=== PATIENT | male | born 1940 | race Caucasian/White ===

== ENCOUNTER → 2023-10-13 09:41 | Outpatient (REF) | payer OTHER, SELFPAY | LOC: HWRAD 09:41 | PROVIDERS: ATTENDING PHYSICIAN Internal Medicine Hematology & Oncology; FAMILY PHYSICIAN Internal Medicine; OTHER PHYSICIAN Internal Medicine Interventional Cardiology; REFERRING PHYSICIAN Internal Medicine | DX: D47.2 Monoclonal gammopathy (principal); S32.040A Wedge compression fracture of fourth lumbar vertebra, initial encounter for closed fracture; M85.80 Other specified disorders of bone density and structure, unspecified site | CPT/HCPCS: 77075 ==

== ENCOUNTER → 2023-10-27 10:26 | Outpatient (REF) | payer OTHER, SELFPAY | LOC: HWRAD 10:26 | PROVIDERS: ATTENDING PHYSICIAN Internal Medicine; FAMILY PHYSICIAN Internal Medicine; OTHER PHYSICIAN Internal Medicine Hematology & Oncology; REFERRING PHYSICIAN Internal Medicine Interventional Cardiology | DX: N17.9 Acute kidney failure, unspecified (principal) | CPT/HCPCS: 76770 ==

== ENCOUNTER → 2023-10-28 09:23 | Outpatient (REF) | payer OTHER, SELFPAY | LOC: HWRAD 09:23 | PROVIDERS: ATTENDING PHYSICIAN Internal Medicine Hematology & Oncology; FAMILY PHYSICIAN Internal Medicine; OTHER PHYSICIAN Internal Medicine Interventional Cardiology; REFERRING PHYSICIAN Internal Medicine | DX: D47.2 Monoclonal gammopathy (principal); S32.040A Wedge compression fracture of fourth lumbar vertebra, initial encounter for closed fracture; M85.80 Other specified disorders of bone density and structure, unspecified site | CPT/HCPCS: 77080 ==

== ENCOUNTER → 2024-01-14 10:52 | Outpatient (REF) | payer OTHER, SELFPAY | LOC: HWRCS 10:52 | PROVIDERS: ATTENDING PHYSICIAN Internal Medicine Interventional Cardiology; FAMILY PHYSICIAN Internal Medicine | DX: I48.0 Paroxysmal atrial fibrillation (principal); I35.0 Nonrheumatic aortic (valve) stenosis; I42.9 Cardiomyopathy, unspecified | CPT/HCPCS: 93306 ==

== ENCOUNTER 2024-09-16 18:31 | Inpatient (IN) | payer OTHER, SELFPAY ==
[2024-09-16 11:13] VITALS: BP 101/64
[2024-09-16 11:37] LABS: Urine Albumin 2+ (Neg - Trace); Urine Bilirubin Negative (Negative); Urine Character Clear (Clear); Urine Color Yellow; Urine Glucose Negative (Negative); Urine Ketone 1+ (Negative); Urine Leukocyte Negative (Negative); Urine Nitrite Negative (Negative); Urine Occult Blood 1+ (Negative); Urine Urobilinogen Negative (Neg - 1+)
[2024-09-16 11:40] LABS: % Basophils 0.3 % (0-2); % Immature Granulocytes 0.4 % (0-0.5); % Monocytes 6.9 % (1.7-9.3); % Neutrophils 89.4 % (42.2-75.2); Absolute Immature Granulocytes 0.1 10^3/uL (0-0.05); Absolute Lymphocytes 0.4 10^3/uL (1.2-3.4); Absolute Neutrophils 13.1 10^3/uL (1.4-6.5); Hematocrit 32.6 % (39.0-52.0); Hemoglobin 10.1 g/dL (13.0-18.0); Mean Corpuscular Hgb 33.3 pg (27.0-31.0); Mean Corpuscular Volume 107.6 fL (80.0-94.0); Mean Platelet Volume 9.7 fL (7.4-10.4); Nucleated Red Blood Cells % 0 % (-); Platelet Count 263 10^3/uL (130-400); Red Blood Cell Count 3.03 10^6/uL (4.70-6.10); Red Cell Dist. Width 13.9 % (11.5-14.5); White Blood Cell Count 14.7 10^3/uL (4.8-10.8)
[2024-09-16 11:44] LABS: Urine Bacteria Few (Negative); Urine Red Blood Cell 0-2 /HPF (0-2); Urine Squamous Cell 0-2 /LPF (Few); Urine White Cell 0-2 /HPF (0-5)
[2024-09-16 11:56] LABS: ALT (SGPT) 11 U/L (0-50); AST (SGOT) 19 U/L (17-59); Albumin 4.1 g/dl (3.5-5.0); Alkaline Phosphatase 59 U/L (38-126); Blood Urea Nitrogen 41 mg/dl (9-20); Calcium 9.6 mg/dl (8.4-10.2); Carbon Dioxide 22 mmol/L (22-30); Chloride 107 mmol/L (98-107); Glucose 168 mg/dl (70-99); Lipase 23 U/L (23-300); Potassium 4.4 mmol/L (3.5-5.1); Sodium 138 mmol/L (135-145); Total Bilirubin 0.8 mg/dl (0.2-1.3); Total Protein 6.9 g/dl (6.3-8.2); eGFR 26.44
[2024-09-16 12:21] VITALS: BP 143/85; BMI 26.4
--- NOTE | 2024-09-16 12:31 | ED.GENMED ---
History of Present Illness
General
Chief Complaint: Abdominal Pain
Source: patient
Exam Limitations: none
Time Seen by Provider: 09/16/24 12:12
Nursing documentation reviewed up to this point in time: agreed with
History of Present Illness
History of Present Illness:
Patient is an 83-year-old male with past medical history of A-fib on Eliquis hypertension hyperlipidemia renal insufficiency diabetes presents today for evaluation. Patient started lower abdominal pain last night and had 3 episode of semiformed wet
stools'.' Today he woke up and felt very tired fatigued and did vomit this morning. He is followed by nephrology Dr. Sweeney and last saw her in August 29. She started him on sodium bicarbonate. His renal function was going down.
No recent antibx and no sick contacts.
Past History
Past History
ED Past Medical History: Arrthythmia (Atrial fibrillation), CAD, GERD, NIDDM and Other (Episode of visual change representing possible TIA)
ED Past Surgical History: Cholecystectomy
Social History
Tobacco: Former smoker
Alcohol: Occasional
Drug: None
Personal:
Family History
Family History: Other (Reviewed and noncontributory)
Review of Systems
Review of Systems
Allergies reviewed?: Yes
Other source history: family
All Other Systems: ROS reviewed and negative except as documented in HPI and ROS
Constitutional: Reports fatigue; Denies fever
EENT: Reports no symptoms
Respiratory: Reports no symptoms
Cardiac: Reports no symptoms
ABD/GI: Reports abdominal pain, nausea, vomiting and diarrhea
: Reports no symptoms
Musculoskeletal: Reports no symptoms
Skin: Reports no symptoms
Neurological: Reports no symptoms
Psychiatric: Reports no symptoms
Phy Exam
General Physical Exam
General Presentation: no apparent distress
General age: appears stated age
General Skin: warm and dry
General Habitus: normal
General Mental: alert
General Hydration: dry mucous membranes
Cardiovascular Exam
Cardiovascular Exam: regular rate/rhythm, normal peripheral pulses and systolic murmur
Pulmonary Exam
Pulmonary Exam: lungs clear and no respiratory distress
Gastrointestinal Exam
Gastrointestinal Exam: other (mild lower abd tenderness )
Neurological Exam
Neurological Exam: alert and oriented x3
Musculoskeletal Exam
Musculoskeletal Exam: full ROM
Skin Exam
Skin Exam: normal color and warm/dry
Psychiatric Exam
Psychiatric Exam: normal mood/affect
Course
Orders/Labs/Results
Orders:
Orders
09/16/24 11:25
Complete Blood Count/With Diff Urgent
Comprehensive Metabolic Panel Urgent
Lipase Urgent
Urinalysis Reflex To Culture Urgent
Date Specimen was Collected: 09/16/24
Time Specimen was Collected: 11:16
Urine Microscopic Reflex Cult Urgent
09/16/24 12:41
CT Abd/pel (oral only)-DH Only Urgent
Comment:
Reason For Exam: abd pain vomiting
Iohexol [Omnipaque] See Protocol PO NOW STA
09/16/24 12:42
0.9% Sodium Chloride 1000 ml [Nss] 1,000 ml IV BOLUS
09/16/24 12:48
COVID-19 Antigen Urgent
Source: Nasal Swab
Influenza A+B Rapid Molecular Urgent
DEBORAH Source: Nasal Swab
Specimen Description:
09/16/24 15:54
C DIFF [C difficile Antigen & Toxins] Urgent
DEBORAH Source: Feces/Stool
Specimen Description:
Date Specimen was Collected: 09/16/24
Time Specimen was Collected: 15:51
Norovirus by PCR Urgent
DEBORAH Source: Feces/Stool
Specimen Description:
Date Specimen was Collected: 09/16/24
Time Specimen was Collected: 15:51
Stool Culture Urgent
DEBORAH Source: Feces/Stool
Specimen Description:
Date Specimen was Collected: 09/16/24
Time Specimen was Collected: 15:51
Abnormal Lab Results
09/16/24
11:25
WBC 14.7 H 10^3/uL
(4.8-10.8)
RBC 3.03 L 10^6/uL
(4.70-6.10)
Hgb 10.1 L g/dL
(13.0-18.0)
Hct 32.6 L %
(39.0-52.0)
MCV 107.6 H fL
(80.0-94.0)
MCH 33.3 H pg
(27.0-31.0)
MCHC 31.0 L g/dL
(33.0-37.0)
Abs Immat Gran (auto) 0.1 H 10^3/uL
(0-0.05)
Absolute Neuts (auto) 13.1 H 10^3/uL
(1.4-6.5)
Absolute Lymphs (auto) 0.4 L 10^3/uL
(1.2-3.4)
Absolute Monos (auto) 1.0 H 10^3/uL
(0.1-0.6)
Neutrophils % 89.4 H %
(42.2-75.2)
Lymphocytes % 3.0 L %
(20.5-51.1)
BUN 41 H mg/dl
(9-20)
Creatinine 2.4 H mg/dL
(0.7-1.3)
Glucose 168 H mg/dl
(70-99)
Urine Ketones 1+ A
(Negative)
Ur Occult Blood Reflex 1+ A
(Negative)
Urine Bacteria (Reflex) Few A
(Negative)
Urine Albumin (Reflex) 2+ A
(Neg - Trace)
09/16/24 11:25
09/16/24 11:25
Vital Signs
Initial and Last Documented VS:
Initial Vital Signs
Temp Pulse Resp BP Pulse Ox
98.5 F 76 18 101/64 99
09/16/24 11:13 09/16/24 11:13 09/16/24 11:13 09/16/24 11:13 09/16/24 11:13
Last Documented Vital Signs
Temp Pulse Resp BP Pulse Ox
98.5 F 72 18 143/85 93
09/16/24 11:13 09/16/24 12:21 09/16/24 12:21 09/16/24 12:21 09/16/24 12:21
MDM/Problems Addressed
Differential Diagnosis Includes:
Not limited to viral syndrome dehydration electrolyte abnormality, less likely C. difficile
MDM/Problems Addressed:
As documented patient is an 83-year-old male with renal insufficiency diabetes hypertension hyperlipidemia started with diarrhea last night complaining of weakness. He has vomited this morning. While patient has been here he has had several
episodes of diarrhea cultures were sent. Patient denies any fevers is afebrile white count however elevated at 14.7 hemoglobin stable at 10.1. Renal function however has doubled his creatinine is down to 0.4 it was 1.4(last in 2022).
Patient received fluids here but does complain of continued weakness. Patient will need admission for hydration further evaluation for renal insufficiency stool cultures pending
Chronic conditions affecting care:
renal insufficiency
*Pulse Oximetry
Patient hypoxic: no
*Critical Care Note
Total Time (30-74mins, 75-104mins- exclusive of procedures): Not Applicable
ED Attending Note
-
Portions of this chart may have been created with voice recognition software.� Occasional wrong word or��sound alike� substitutions may have occurred due to the inherent limitations of voice recognition software.
Discharge Plan
Departure
Patient Disposition: Admit
Date of Disposition: 09/16/24
Time of Disposition: 16:56
Admit to: Med/Surg
Admit to doctor: hospitalist
Presentation/result/management discussed w/ accepting MD/DO: Hospitalist
Patient with high blood pressure during this ER visit?: Yes
Condition: Fair
Covid-19: Not Applicable
Discharge Problem:
Acute dehydration, Acute kidney insufficiency, Nausea, vomiting and diarrhea
Prescriptions:
No Action
metformin 500 MG tablet
1,000 mg PO BID
omeprazole 20 MG capsule,delayed release(DR/EC)
20 mg PO DAILY
terazosin 1 mg Capsule
1 mg PO QPM
magnesium oxide 400 mg magnesium Capsule
400 mg PO BID
cyanocobalamin (vitamin B-12) [Vitamin B-12] 1,000 mcg Tablet
1,000 mcg PO DAILY
zinc 50 mg Capsule
50 mg PO DAILY
atorvastatin 40 mg Tablet
40 mg PO DAILY
calcium carbonate-vitamin D3 500 mg-3.125 mcg (125 unit) Tablet
2 tab PO BID
amiodarone [Pacerone] 200 mg Tablet
200 mg PO BID Qty: 0 0RF
amlodipine 2.5 mg Tablet
2.5 mg PO DAILY Qty: 0 0RF
Eliquis 5 mg tablet
5 mg PO BID Qty: 60 0RF
acetaminophen 500 mg Tablet
500 mg PO BID PRN (Reason: mild pain)
oxycodone-acetaminophen 5-325 mg tablet
1 tab PO Q8H PRN (Reason: moderate pain)
Patient Comments:
07/12/2023: last filled 07/09/23, 90 tabs for 30 days
Referrals:
Jose Morrell MD [Family Provider] -
Interventions
Interventions:
*Risk Screen - Suicide Last Done: 09/16/24 11:13
*General Assessment Last Done: 09/16/24 11:13
*Neglect/Abuse Screening Last Done: 09/16/24 11:13
*ED COVID-19 Vaccine History Last Done: 09/16/24 11:13
MQ-Isvinh-Cswsybzsbb Assessment Last Done: 09/16/24 12:21
Discharge Date and Time
Print Language: KAZAKH
[2024-09-16] MEDS: OMNIPAQUE 50 ML PO (12:47)
[2024-09-16] MEDS: NSS 1000 IV ×2 (12:47→21:45)
[2024-09-16 13:27] LABS: COVID-19 Antigen Negative (Negative)
--- NOTE | 2024-09-16 17:24 | HPS.HSE ---
Family Physician
-
Family Physician: Jose Morrell
Chief Complaint
-
lower abdominal pain with n/v/d
History of Present Illness
83-year-old male with past medical history of A-fib on Eliquis hypertension hyperlipidemia renal insufficiency diabetes presents today for intermittent abdominal pain since last night. Patient stated loose stool associated with formed stool for
past. Today he had diarrhea as vomiting. He is complaining of lower abdominal cramps which is intermittent. Denied any blood in the stool or vomit. Patient denied any fever, chills, chest pain, short of breath. Patient denies any headache,
dizzy or syncope. Patient denied dysuria hematuria. Today morning patient was very fatigued and weak.
CT with gastritis. Patient received normal saline in the ER. Stool for C. difficile, norovirus and stool culture sent from ER. Admitting for further management
Medical History
Past Medical History
Past Medical History: Reports Other
Additional Past Medical History:
Hypertension
Type 2 diabetes
GERD
Hyperlipidemia
CKD
Compression fracture of back
Chronic back pain
Past Surgical History: Reports Other
Additional Past Surgical History:
Trigger finger fourth digit repaired
Tonsillectomy
Big toe surgery
Inguinal hernia repair
Right foot great toe repair
Social History
Tobacco: Former Smoker
Alcohol: None
Drug: None
Personal:
Living: With Family
Family History
Family History: Not pertinent
Allergies / Home Medications
Allergies reflects when Allergies were last updated in [employer].
Home Medications with original date entered in [employer]
Allergy/Medication List:
Allergies
Allergy/AdvReac Type Severity Reaction Status Date / Time
No Known Allergies Allergy Verified 09/16/24 11:15
Home Medications
atorvastatin 40 mg tablet 40 mg PO QPM High Cholesterol 06/16/23
calcium 500 mg (as carbonate)-vitamin D3 3.125 mcg (125 unit) tablet 2 tab PO BID Supplement 06/16/23
terazosin 1 mg capsule 1 mg PO QPM Blood Pressure 06/16/23
amiodarone 200 mg tablet (Pacerone) 200 mg PO NOON 09/16/24
apixaban 2.5 mg tablet (Eliquis) 2.5 mg PO BID 09/16/24
furosemide 20 mg tablet 20 mg PO DAILYPRN PRN swelling 09/16/24
magnesium chloride 71.5 mg (magnesium chloride) tablet,delayed release (Slow-Mag) 71.5 mg PO TID 09/16/24
sodium bicarbonate 650 mg tablet 650 mg PO BID 09/16/24
sodium polystyrene sulfonate 15 gram-sorbitol 20 gram/60 mL oral susp (SPS (with sorbitol)) 60 ml PO MOWEFR 09/16/24
Review of Systems
-
Constitutional: Reports Fatigue
EENT: Reports No Symptoms
Respiratory: Reports No Symptoms
Cardiac: Reports No Symptoms
Abdomen/GI: Reports Abdominal Pain, Nausea, Vomiting and Diarrhea
: Reports No Symptoms
Musculoskeletal: Reports No Symptoms
Skin: Reports No Symptoms
Neurological: Reports Weakness
Endocrine: Reports No Symptoms
Hematologic/Lymphatic: Reports No Symptoms
Psych: Reports No Symptoms
Physical Exam
Vital Signs
Vital Signs
Temp Pulse Resp BP Pulse Ox
98.5 F 72 18 143/85 93
09/16/24 11:13 09/16/24 12:21 09/16/24 12:21 09/16/24 12:21 09/16/24 12:21
Physical Exam
General: Well Developed, Well Nourished and No Apparent Distress
HEENT: NormoCephalic, Moist mucous membranes and Atraumatic
Respiratory: Clear
Cardiac: S1/S2 and Regular Rhythm; No Murmur or Rub
GI: Soft, Non Tender, Non Distended and Normal Bowel Sounds; No Organomegaly
Rectal: Deferred by Provider
Musculoskeletal: No Clubbing, No Cyanosis and No Edema
Skin: No Rash
Neuro: AO x 3 and Nonfocal/grossly intact
Psych: Calm
Laboratory Results
-
09/16/24 11:25
09/16/24:
Laboratory Results
Total Bilirubin 0.8 mg/dl (0.2-1.3) 09/16/24:
AST 19 U/L (17-59) 09/16/24:
ALT 11 U/L (0-50) 09/16/24:
Alkaline Phosphatase 59 U/L (38-126) 09/16/24
Lipase 23 U/L (23-300) 09/16/24:
Data Reviewed
-
CT Scan: Report Reviewed by me
Lab Data: Labs Reviewed by me
Impression/Plan
-
# Nausea vomiting/diarrhea likely gastroenteritis
-WBCs 14.7
-Flu, COVID-negative
-Stool culture sent from ER
-Stool for C. difficile, norovirus
-CT abdomen pelvis with impression of Gastric wall thickening suggesting possible gastritis. Mild bilateral renal cortical thinning with 2 cm right renal cyst). Diverticuli are present in the colon with no CT evidence of diverticulitis.. Small right
pleural effusion. Multilevel degenerative disc disease with old 90% compression fracture of L4
#generalized weakness likely from nausea vomiting
-PT/OT consulted
# Acute renal failure on CKD stage IIIb likely from nausea vomiting/diarrhea
-Creatinine 2.4
-Fluids continued
BMP in a.m.
# Anemia of chronic disease
-Hemoglobin stable at 10.1
-No active bleed
-Continue to monitor
#PAF--Cont Eliquis/Amio
-EKG with normal sinus
#Hyperlipidemia
-Statin continued
Essential hypertension-- Continue terazosin
code status --DNR
[2024-09-16 17:43] VITALS: BP 125/50
--- NOTE | 2024-09-16 18:01 | W.PN.UPDATE ---
Update Note
Progress Note Update
This is an addendum to the H&P written by Elva Walsh on 09/16/2024.� Patient seen and examined independently with IRISH MOSS GATHERER.
83-year-old male past medical history of CKD 3A, type 2 diabetes, paroxysmal atrial fibrillation on Eliquis, hypertension, presenting for diarrhea for the past 2 days as well as vomiting associate with lower abdominal cramping.
Labs show LEANN with creatinine of 2.4 from 1.4.� Leukocytosis of 14.7.
CT abdomen pelvis shows gastric wall thickening suggesting possible gastritis.
Presentation consistent with acute viral gastroenteritis with associated LEANN on CKD 3A.� Clear liquid diet.� Stool studies, norovirus, C. difficile pending. IV fluids.�
--- NOTE | 2024-09-16 21:06 | PTCARENOTE ---
Pt received from ED to [id number]. Pt oriented to room and call warren.
[2024-09-16 21:31] VITALS: BP 102/73; BMI 26.9
[2024-09-16] MEDS: LIPITOR 40 MG PO (21:47)
[2024-09-16] MEDS: ELIQUIS 2.5 MG PO (21:47)
[2024-09-16] MEDS: SODIUM BICARBONATE 650 MG PO (21:47)
[2024-09-16 23:49] VITALS: BP 148/96
[2024-09-17 03:28] VITALS: BP 125/54
[2024-09-17 07:00] VITALS: BP 127/55
[2024-09-17 07:57] LABS: Hematocrit 26.7 % (39.0-52.0); Hemoglobin 8.5 g/dL (13.0-18.0); Mean Corp Hgb Conc. 31.8 g/dL (33.0-37.0); Mean Corpuscular Hgb 33.9 pg (27.0-31.0); Mean Corpuscular Volume 106.4 fL (80.0-94.0); Platelet Count 220 10^3/uL (130-400); Red Blood Cell Count 2.51 10^6/uL (4.70-6.10); White Blood Cell Count 9.2 10^3/uL (4.8-10.8)
[2024-09-17] MEDS: NSS 1000 IV (08:09)
[2024-09-17] MEDS: SODIUM BICARBONATE 650 MG PO (08:10)
[2024-09-17] MEDS: ELIQUIS 2.5 MG PO (08:10)
[2024-09-17 08:30] LABS: Blood Urea Nitrogen 36 mg/dl (9-20); Calcium 8.4 mg/dl (8.4-10.2); Carbon Dioxide 19 mmol/L (22-30); Chloride 108 mmol/L (98-107); Estimated Creatinine Clearance 28 ml/min; Glucose 108 mg/dl (70-99); Sodium 137 mmol/L (135-145); eGFR 29.36
--- NOTE | 2024-09-17 08:41 | CON.GI ---
Consultation
-
Date/Time Consultation Requested: 09/17/24
Date/Time Consultation Performed: 09/17/24
Requesting Provider:
Performing Provider:
Reason for Consultation: n/v/d
Medical History
Chief Complaint / HPI
Chief Complaint: n/v/d
History of Present Illness:
This is a very pleasant 83-year-old male with past medical history of hypertension, Type 2 diabetes, GERD, Hyperlipidemia, CKD, Compression fracture of back, Chronic back pain, Atrial fibrillation on Eliquis, CAD, Episode of visual change
representing possible TIA who was in his usual state of health up until about 2 days ago when he started to develop lower abdominal pain with frequent looser stools. Yesterday morning he had an episode of vomiting which prompted him to come into
the emergency room he has not had any further episodes of vomiting and he did have about 3 loose bowel movements yesterday stool was negative for C. difficile and negative for norovirus, cultures are pending. He denies any fevers or chills no
rectal bleeding. He denies any recent travel or exposure to sick contacts. They had lost power so him and his were staying with his [id number] for 2 days and had not really eaten out prior to the onset of the symptoms but yesterday he
had eaten takeout but had symptoms prior to that. He does have a history of reflux esophagitis and had been on omeprazole for a few years but subsequently was diagnosed with CKD and was taken off PPI and has made dietary modifications and has
actually been doing well with reflux with occasional use of Tums. His last colonoscopy was in 2014 and also his last endoscopy was in 2015 as below. He did have dehydration with elevated creatinine on admission and is being hydrated. His symptoms
have markedly improved today he has not had any further vomiting or diarrhea today.
Past Medical History
Past Medical History: Other (Fever ypertension, Type 2 diabetes, GERD, Hyperlipidemia, CKD, Compression fracture of back, Chronic back pain, Atrial fibrillation on Eliquis, CAD, Episode of visual change representing possible TIA)
Past Surgical History: Other (Trigger finger fourth digit repaired, Tonsillectomy, CCY, Inguinal hernia repair, Right foot great toe repair)
Social History
Tobacco: Former Smoker
Alcohol: None
Drug: None
Personal:
Living: With Family
Family History
Family History: Reviewed & Not Pertinent
Allergies / Home Medications
Allergy/AdvReac Type Severity Reaction Status Date / Time
No Known Allergies Allergy Verified 09/16/24 11:15
�Medication �Instructions �Recorded
atorvastatin 40 mg tablet 40 mg PO QPM High Cholesterol 06/16/23
calcium 500 mg (as 2 tab PO BID Supplement 06/16/23
carbonate)-vitamin D3 3.125 mcg
(125 unit) tablet
terazosin 1 mg capsule 1 mg PO QPM Blood Pressure 06/16/23
amiodarone 200 mg tablet (Pacerone) 200 mg PO NOON Heart 09/16/24
Disease/Condition
apixaban 2.5 mg tablet (Eliquis) 2.5 mg PO BID Blood Clot 09/16/24
Prevention/Tx
furosemide 20 mg tablet 20 mg PO DAILYPRN PRN swelling 09/16/24
magnesium chloride 71.5 mg 71.5 mg PO TID Supplement 09/16/24
(magnesium chloride)
tablet,delayed release (Slow-Mag)
sodium bicarbonate 650 mg tablet 650 mg PO BID Metabolic acidosis 09/16/24
sodium polystyrene sulfonate 15 60 ml PO MOWEFR Potassium Binder 09/16/24
gram-sorbitol 20 gram/60 mL oral
susp (SPS (with sorbitol))
Review of Systems
-
All other systems: A 12 pt ROS was Negative except as stated above in HPI
Vital Signs
Temp Pulse Resp BP Pulse Ox
98.3 F 65 18 127/55 92
09/17/24 07:00 09/17/24 07:00 09/17/24 07:00 09/17/24 07:00 09/17/24 07:00
Physical Exam
Exam
General: No Apparent Distress
HEENT: Normocephalic
Respiratory: Clear
Cardiac: S1/S2
GI: Non Tender, Non Distended and Normal Bowel Sounds
Musculoskeletal: No Clubbing
Neuro: Awake, Alert and Oriented
Psych: Calm
Results
WBC 9.2 10^3/uL (4.8-10.8) 09/17/24 07:06
Hgb 8.5 g/dL (13.0-18.0) L 09/17/24 07:06
Hct 26.7 % (39.0-52.0) L 09/17/24 07:06
MCV 106.4 fL (80.0-94.0) H 09/17/24 07:06
Plt Count 220 10^3/uL (130-400) 09/17/24 07:06
Absolute Neuts (auto) 13.1 10^3/uL (1.4-6.5) H 09/16/24 11:25
Sodium 137 mmol/L (135-145) 09/17/24 07:06
Potassium 4.0 mmol/L (3.5-5.1) 09/17/24 07:06
Chloride 108 mmol/L (98-107) H 09/17/24 07:06
Carbon Dioxide 19 mmol/L (22-30) L 09/17/24 07:06
BUN 36 mg/dl (9-20) H 09/17/24 07:06
Creatinine 2.2 mg/dL (0.7-1.3) H 09/17/24 07:06
Calcium 8.4 mg/dl (8.4-10.2) 09/17/24 07:06
Total Bilirubin 0.8 mg/dl (0.2-1.3) 09/16/24 11:25
AST 19 U/L (17-59) 09/16/24 11:25
ALT 11 U/L (0-50) 09/16/24 11:25
Alkaline Phosphatase 59 U/L (38-126) 09/16/24 11:25
Lipase 23 U/L (23-300) 09/16/24 11:25
Diagnostic Image Results:
09/16/24 CT Abd/pelvis
IMPRESSION:
1). Gastric wall thickening suggesting possible gastritis
2). Mild bilateral renal cortical thinning with 2 cm right renal cyst
3). Diverticuli are present in the colon with no CT evidence of diverticulitis.
4). Small right pleural effusion.
5). Multilevel degenerative disc disease with old 90% compression fracture of L4
Prior GI Procedures:
09/16/24 Stool
C. difficile [facility] Antigen & Toxins - Final
���Negative for toxigenic C.difficile
- Final
���Negative for Norovirus GI and GII.
EGD: 03/03/2015 - SONYA Grade B reflux esophagitis. Biopsied negative for Valle's negative for EOE.
- Enlarged gastric folds. Biopsied benign
- Chronic gastritis. Biopsied negative for dysplasia negative for H. pylori..
- Normal 3rd part of the duodenum. Biopsied negative for celiac.
Colonoscopy: 03/03/2015 -Impression: - One 3 mm polyp in the descending colon. Resected and
retrieved - adenomatous polyp.
- Diverticulosis in the sigmoid colon.
- The examination was otherwise normal.
Assessment / Plan
-
1. Acute onset of symptoms of lower abdominal pain with nausea vomiting and diarrhea most likely related to possible viral gastroenteritis vs less likely food poisoning. Stool negative for C. difficile and negative for norovirus will follow-up on
the cultures. His symptoms have markedly improved so will start him on low residue diet and if he tolerates okay to DC home from GI perspective.
2. LEANN with history of prior CKD follows up with nephrology as outpatient trend creatinine and being hydrated with fluids now most likely was related to the diarrhea and vomiting.
3. History of reflux esophagitis in 2014 on EGD has been off omeprazole for few years now and has been doing well with dietary modifications and uses Tums as needed.
4. History of adenomatous colon polyp in 2015 given age will hold off on further surveillance
5. Diverticulosis resume high-fiber diet after these acute symptoms have resolved
Data Reviewed
-
CT Scan: Report Reviewed by me
Old Records: Reviewed
-
-
Thank you for consultation and allowing me to participate in the patient's care. Please call the operational intelligence analyst GI physician during the after hours with any questions or concerns.
--- NOTE | 2024-09-17 09:04 | W.PN.HOSP.TC ---
Today's Communication/Plan
-
Continue with low rate IVF for renal
Repeat blood work, drop in HGB
Order PT/OT
Assessment / Plan
Assessment / Plan
Physical Exam
General: Well Developed, Well Nourished and No Apparent Distress
HEENT: Normocephalic, Moist mucous membranes and Atraumatic
Respiratory: Clear
Cardiac: S1/S2, + Murmur. Regular.
GI: Soft, Non Tender, Non Distended and Normal Bowel Sounds;
Rectal: No bleeding
Musculoskeletal: No Clubbing, No Cyanosis and No Edema
Skin: No Rash
Neuro: AO x 3 and Nonfocal/grossly intact
Psych: Calm
# Nausea vomiting/diarrhea likely gastroenteritis, WBCs 14.7
Significant improvement
No pain, no nausea, pt wants to eat solid food
WBC normal, no fevers
Negative Lipase.
No diarrhea
-Flu, COVID-negative
-Stool culture sent from ER
-Negative C. difficile, norovirus
-CT abdomen pelvis with impression of Gastric wall thickening suggesting possible gastritis. Mild bilateral renal cortical thinning with 2 cm right renal cyst). Diverticuli are present in the colon with no CT evidence of diverticulitis.. Small right
pleural effusion. Multilevel degenerative disc disease with old 90% compression fracture of L4
#generalized weakness likely from nausea vomiting
-PT/OT consulted
# Acute renal failure on CKD stage IIIb likely from nausea vomiting/diarrhea
-Creatinine 2.4, now down to 2.2
- s/p IVF, will c/w low rate
# Anemia of chronic disease
-Hemoglobin stable at 10.1, dropped to 8, suspect dilutional
Repeat CBC in AM
No bleeding
-No active bleed
#Paroxysmal a fib
- Cont Eliquis/Amiodarone
-EKG with normal sinus
#Hyperlipidemia
-Statin continued
Essential hypertension-- Continue terazosin
code status --DNR
Total time spent to see the patient on the floor, examine the patient, review data and lab results, discuss treatment plan with patient, nursing staff around 55 minutes
Anticipated Discharge: Within 24 hours
Subjective/Interval History
-
Date of Service: September 17, 2024
Feels better
No nausea
would like to eat more food
Objective Data
-
Labs:
Laboratory Results
09/17/24
07:06
WBC 9.2
Hgb 8.5 L
Hct 26.7 L
Plt Count 220
Sodium 137
Potassium 4.0
Chloride 108 H
Carbon Dioxide 19 L
BUN 36 H
Creatinine 2.2 H
Glucose 108 H
Calcium 8.4
Vital Signs:
Vital Signs
Temp Pulse Resp BP Pulse Ox
98.3 F 65 18 127/55 92
09/17/24 07:00 09/17/24 07:00 09/17/24 07:00 09/17/24 07:00 09/17/24 07:00
I&O
09/16/24 09/17/24 09/18/24
06:59 06:59 06:59
Intake Total 1060 / 1060
Output Total 200 / 200
Balance 860 / 860
[2024-09-17 10:40] VITALS: BP 112/93; O2SAT 95
[2024-09-17 11:00] VITALS: BP 113/47
[2024-09-17] MEDS: PACERONE 200 MG PO (11:29)
--- NOTE | 2024-09-17 11:38 | W.CON.NEPH ---
Consultation
-
Date/Time Consultation Requested: September 17, 2024 at 7 AM
Date/Time Consultation Performed: September 17, 2024 at 11:30 AM
Requesting Provider: Dr. Cooper
Performing Provider: Dr. Bhagat
Reason for Consultation: Chronic kidney disease
Medical History
-
Chief Complaint: Abdominal pain
History of Present Illness:
83-year-old male with past medical history of A-fib on Eliquis hypertension hyperlipidemia renal insufficiency diabetes presents today for intermittent abdominal pain since last night.. This was associated with loose stools and vomiting x 1.
Renal consult for CKD management.
Patient follows with Dr. Sweeney for his chronic kidney disease which has been progressing over the last year. His most recent creatinine as of August 25, 2024 was 2.6. At that office visit he was put on sodium bicarbonate tablets.
His renal function on hospital admission was better than his baseline. Over the last 12 months his creatinine has been running from 2.3-2.6.
Of note his omeprazole had been discontinued about a year ago because of his chronic kidney disease. He did have a positive ANICETO and was offered a kidney biopsy with his progressive increase in renal function although the patient declined.
Past Medical History
Chronic kidney disease stage IV, hypertension, atrial fibrillation, acidosis diabetes
Social History
Tobacco: Non-Smoker
Alcohol: None
Family History
No renal disease
Allergies / Home Medications
Allergy/AdvReac Type Severity Reaction Status Date / Time
No Known Allergies Allergy Verified 09/16/24 11:15
�Medication �Instructions �Recorded �Confirmed �Type
atorvastatin 40 mg tablet 40 mg PO QPM High Cholesterol 06/16/23 09/16/24 History
calcium 500 mg (as 2 tab PO BID Supplement 06/16/23 09/16/24 History
carbonate)-vitamin D3 3.125 mcg
(125 unit) tablet
terazosin 1 mg capsule 1 mg PO QPM Blood Pressure 06/16/23 09/16/24 History
amiodarone 200 mg tablet (Pacerone) 200 mg PO NOON Heart 09/16/24 09/16/24 History
Disease/Condition
apixaban 2.5 mg tablet (Eliquis) 2.5 mg PO BID Blood Clot 09/16/24 09/16/24 History
Prevention/Tx
furosemide 20 mg tablet 20 mg PO DAILYPRN PRN swelling 09/16/24 09/16/24 History
magnesium chloride 71.5 mg 71.5 mg PO TID Supplement 09/16/24 09/16/24 History
(magnesium chloride)
tablet,delayed release (Slow-Mag)
sodium bicarbonate 650 mg tablet 650 mg PO BID Metabolic acidosis 09/16/24 09/16/24 History
sodium polystyrene sulfonate 15 60 ml PO MOWEFR Potassium Binder 09/16/24 09/16/24 History
gram-sorbitol 20 gram/60 mL oral
susp (SPS (with sorbitol))
Review of Systems
-
Currently no chest pain shortness of breath nausea or vomiting or abdominal pain
All other systems: Negative unless noted
Physical Exam
Vital Signs
Vital Signs
Temp Pulse Resp BP Pulse Ox
98.3 F 65 18 127/55 92
09/17/24 07:00 09/17/24 07:00 09/17/24 07:00 09/17/24 07:00 09/17/24 07:00
Lab Results
WBC 9.2 10^3/uL (4.8-10.8) 09/17/24 07:06
RBC 2.51 10^6/uL (4.70-6.10) L 09/17/24 07:06
Hgb 8.5 g/dL (13.0-18.0) L 09/17/24 07:06
Hct 26.7 % (39.0-52.0) L 09/17/24 07:06
Plt Count 220 10^3/uL (130-400) 09/17/24 07:06
Sodium 137 mmol/L (135-145) 09/17/24 07:06
Potassium 4.0 mmol/L (3.5-5.1) 09/17/24 07:06
Chloride 108 mmol/L (98-107) H 09/17/24 07:06
Carbon Dioxide 19 mmol/L (22-30) L 09/17/24 07:06
BUN 36 mg/dl (9-20) H 09/17/24 07:06
Creatinine 2.2 mg/dL (0.7-1.3) H 09/17/24 07:06
eGFR 29.36 09/17/24 07:06
Glucose 108 mg/dl (70-99) H 09/17/24 07:06
Calcium 8.4 mg/dl (8.4-10.2) 09/17/24 07:06
Albumin 4.1 g/dl (3.5-5.0) 09/16/24 11:25
Physical Exam
General no acute distress
HEENT no cephalic atraumatic extraocular muscle intact no scleral icterus no JVD neck supple
lungs clear to auscultation bilateral
heart regular S1-S2 positive
abdomen soft nontender positive bowel sounds
extremities no edema pulses present bilateral
Neurologically nonfocal alert and oriented x 3
Skin no lesions no abrasions no petechiae
Psych normal affect no bizarre behavior
Data Reviewed
-
CT Scan: Image Personally Visualized and interpreted (No obstructive renal pathology. Chronic cyst.)
Labs: Labs Reviewed by me, Discussed with Nurse, Discussed with Patient and Discussed with Family
Assessment/Plan
-
Assessment:
Chronic kidney disease stage IV= at baseline
Previously asymptomatic right carotid stenosis
Atrial fibrillation on anticoagulation stable rate controlled
Nonischemic myocardial injury �-EF 50 to 55%, mild concentric left ventricular hypertrophy
Essential hypertension
DM 2 hemoglobin A1c 7.0%.�
Cystic lesions within the central aspect of the right kidney
Chronic microcytic anemia
Gastritis versus gastroenteritis= GI consult noted today
Plan:
Patient follows with Dr. Sweeney for his chronic kidney disease which has been progressing over the last year. His most recent creatinine as of August 25, 2024 was 2.6. At that office visit he was put on sodium bicarbonate tablets.
Over the last 12 months his creatinine has been running from 2.3-2.6.
From from a renal standpoint his renal function is better than baseline.
Continue bicarbonate tablets.
Okay to discharge again from a renal standpoint with a stable renal function.
Regular scheduled CKD follow-up with our office.
This was communicated to his who was at the bedside as well as nurse
[2024-09-17 11:52] VITALS: BP 112/93; O2SAT 96
--- NOTE | 2024-09-17 15:36 | CM ---
preconstruction manager reviewed patient's chart and met with patient and spouse, patient lives with spouse in a one story home, patient was independent with adl's and used a cane with ambulation, patient is for discharge to home today no needs.
PCP: Dr. Morrell
[facility] [place]
Plan; Home today no needs.
--- NOTE | 2024-09-18 14:25 | W.DCSUMMARY ---
Discharge Summary
Discharge Data
Date of Admission: 09/16/24
Date of Discharge: 09/17/24
-
Pending Results: No
Hospital Course
83 years old male admitted with acute onset of lower abdominal pain, vomiting and diarrhea. Patient had mild leukocytosis. Scan of the abdomen and pelvis with oral contrast showed possible gastritis. He was seen by drier helper. Was
diagnosed with likely dehydration from viral gastroenteritis, less likely food poisoning. Negative norovirus and C. difficile test. Patient improved with supportive care. He was given IV fluid. Patient was able to tolerate diet. He was seen by
hydroelectric plant structural engineer. Kidney function felt to be stable and at baseline. Patient had history of chronic kidney disease stage IV. Urban Planning Teacher recommended outpatient follow-up. Patient was seen by physical therapy and did not have needs. Patient remained
hemodynamically stable and was discharged home in a stable condition.
Discharge Plan
-
Patient Disposition: Home (Routine Discharge)
Discharge Diagnosis/Procedures: Dehydration
Diet: As tolerated
Referrals:
Jose Morrell MD [Family Provider] -
Iram Sweeney MD [Active] - in two to four weeks
Prescriptions:
Continued
terazosin 1 mg Capsule
1 mg PO QPM
atorvastatin 40 mg Tablet
40 mg PO QPM
calcium carbonate-vitamin D3 500 mg-3.125 mcg (125 unit) Tablet
2 tab PO BID
sodium bicarbonate 650 mg Tablet
650 mg PO BID
furosemide 20 mg Tablet
20 mg PO DAILYPRN PRN (Reason: swelling)
Slow-Mag 71.5 mg Tablet,Delayed Release (Dr/Ec)
71.5 mg PO TID
Eliquis 2.5 mg Tablet
2.5 mg PO BID
SPS (with sorbitol) 15-20 gram/60 mL Suspension
60 ml PO MOWEFR
amiodarone [Pacerone] 200 mg tablet
200 mg PO NOON
Discharge Orders:
Discharge Patient (As Directed); Ordered 09/17/24
Ordered By: oRcío Cooper
Discharge Date and Time
Discharge Date/Time: 09/17/24 16:10
Print Language: ICELANDIC
== END 2024-09-17 16:10 | disposition home or self-care (01) | DRG 641 ==
LOC: 4 WEST ACU 18:31
PROVIDERS: Emergency Medicine; Nurse Practitioner; Registered Nurse; ADMITTING PHYSICIAN Hospitalist; ATTENDING PHYSICIAN Internal Medicine; EMERGENCY PHYSICIAN Student in an Organized Health Care Education/Training Program; FAMILY PHYSICIAN Internal Medicine; OTHER PHYSICIAN Internal Medicine Gastroenterology; OTHER PHYSICIAN Internal Medicine Nephrology
DX: E86.0 Dehydration (principal); N17.9 Acute kidney failure, unspecified; I5A Non-ischemic myocardial injury (non-traumatic); J90 Pleural effusion, not elsewhere classified; N18.4 Chronic kidney disease, stage 4 (severe); R10.9 Unspecified abdominal pain; I48.0 Paroxysmal atrial fibrillation; I13.10 Hypertensive heart and chronic kidney disease without heart failure, with stage 1 through stage 4 chronic kidney disease, or unspecified chronic kidney disease; E78.00 Pure hypercholesterolemia, unspecified; E11.22 Type 2 diabetes mellitus with diabetic chronic kidney disease; I25.10 Atherosclerotic heart disease of native coronary artery without angina pectoris; K21.00 Gastro-esophageal reflux disease with esophagitis, without bleeding; G89.29 Other chronic pain; D72.829 Elevated white blood cell count, unspecified; R76.8 Other specified abnormal immunological findings in serum; I65.21 Occlusion and stenosis of right carotid artery; D50.9 Iron deficiency anemia, unspecified; K29.50 Unspecified chronic gastritis without bleeding; A08.4 Viral intestinal infection, unspecified; M54.9 Dorsalgia, unspecified; D63.1 Anemia in chronic kidney disease; N28.1 Cyst of kidney, acquired; M51.360 Other intervertebral disc degeneration, lumbar region with discogenic back pain only; Z66 Do not resuscitate; Z90.49 Acquired absence of other specified parts of digestive tract; Z86.73 Personal history of transient ischemic attack (TIA), and cerebral infarction without residual deficits; Z87.891 Personal history of nicotine dependence; Z79.01 Long term (current) use of anticoagulants; Z86.0101 Personal history of adenomatous and serrated colon polyps; Z11.52 Encounter for screening for COVID-19
CPT/HCPCS: 74176; 80048; 80053; 81003; 81015; 83690; 85025; 85027; 87045; 87046; 87077; 87324; 87427; 87449; 87502; 87798; 87811; 93005; 96360; 97162; 97165; 99285

== ENCOUNTER → 2025-03-30 10:27 | Outpatient (REF) | payer OTHER, SELFPAY | LOC: HWRCS 10:27 | PROVIDERS: ATTENDING PHYSICIAN Internal Medicine Interventional Cardiology; FAMILY PHYSICIAN Internal Medicine | DX: I35.0 Nonrheumatic aortic (valve) stenosis (principal) | CPT/HCPCS: 93306 ==